=== PATIENT | male | born 1950 | race Caucasian/White ===

== ENCOUNTER 2019-02-13 10:26 | Emergency (ER) | payer OTHER, MEDICARE ==
[~2019-02-13] VITALS: Ht 170.2 cm; Wt 102.0 kg
[2019-02-13] MEDS ORDERED: ROSU40TA4 PO (10:46)
[2019-02-13] MEDS ORDERED: GLIP10TA PO (10:46)
[2019-02-13] MEDS ORDERED: LISI10TA4 PO (10:46)
[2019-02-13] MEDS ORDERED: METF10004 PO (10:46)
[2019-02-13] MEDS ORDERED: ERGO80006 PO (10:46)
[2019-02-13] MEDS ORDERED: KP K0.02 OP (10:46)
[2019-02-13] MEDS ORDERED: NS 500 ML IV ONE (13:00)
[2019-02-13 13:07] LABS: BASO # 0.1 10^3/uL (0.0-0.2); BASO % 0.9 % (0.0-1.0); EOS # 0.1 10^3/uL (0.0-0.50); EOS % 1.5 % (0.0-3.0); HEMATOCRIT 42.1 % (42.0-52.0); HEMOGLOBIN 14.6 g/dl (13.5-17.5); LYMPH % 14.2 % (24.0-44.0); MEAN CORPUSCULAR HEMOGLOBIN 31.7 pg (27.0-33.0); MEAN CORPUSCULAR HGB CONC 34.7 g/dl (32.0-36.5); MEAN CORPUSCULAR VOLUME 91.3 fl (80.0-96.0); MONO # 0.6 10^3/uL (0.0-0.8); MONO % 8.2 % (0.0-5.0); NEUTROPHILS # 5.1 10^3/uL (1.8-7.7); NEUTROPHILS % 74.9 % (36.0-66.0); PLATELET COUNT, AUTOMATED 161 10^3/uL (150-450); RED BLOOD COUNT 4.61 10^6/uL (4.30-6.10); WHITE BLOOD COUNT 6.9 10^3/uL (4.0-10.0)
[2019-02-13 13:28] LABS: BLOOD UREA NITROGEN 17 MG/DL (7-18); CALCIUM LEVEL 9.3 MG/DL (8.8-10.2); CARBON DIOXIDE LEVEL 29 MEQ/L (21-32); CHLORIDE LEVEL 99 MEQ/L (98-107); CREATININE FOR GFR 1.13 MG/DL (0.70-1.30); GLOMERULAR FILTRATION RATE > 60.0 (>42); GLUCOSE, FASTING 147 MG/DL (70-100); POTASSIUM SERUM 3.5 MEQ/L (3.5-5.1); SODIUM LEVEL 138 MEQ/L (136-145)
[2019-02-13] MEDS ORDERED: LORazepam 2 MG/ML VIAL (J2060) IV STA (16:21)
[2019-02-13] MEDS ORDERED: PROHANCE 279.3MG/ML 5ML VIAL (A9576) As Ordered ONE (17:29)
[2019-02-13] MEDS ORDERED: PROHANCE 279.3MG/ML 15ML VIAL (A9576) As Ordered ONE (17:30)
[2019-02-13] MEDS ORDERED: ACETAMINOPHEN 325 MG TAB PO ONE (20:00)
--- NOTE | 2019-02-13 20:27 | REPVR ---
EXAM: MR Lumbar Spine Without and With Contrast. EXAM DATE/TIME: 02/13/2019 5:38 PM CLINICAL HISTORY: 68 years old, male; Pain and condition or disease; Incontinence, urinary and other: Prostate cancer; Low back pain; Additional info: Back pain, lle numbness, incontinence, h/o prostate CA TECHNIQUE: Imaging protocol: Multiplanar magnetic resonance images of the lumbar spine without and with intravenous contrast. Contrast material: PROHANCE; Contrast volume: 20 ml; Contrast route: IV HAND INJECTION; COMPARISON: No relevant prior studies available. FINDINGS: Vertebrae: Unremarkable. Spinal cord: The conus medullaris terminates at the L1 level. The distal cord appears unremarkable. T12-L1: Imaged on the sagittal images only. Anterior endplate spurs. No posterior disc bulge or herniation. No central or foraminal narrowing. L1-L2: Anterior endplate spurs. No posterior disc bulge or herniation. No central or foraminal narrowing. L2-L3: Anterior endplate spurs. Minimal diffuse disc bulge. No central or foraminal narrowing. L3-L4: Anterior endplate spurs. Minimal right foraminal to lateral disc bulge. Mild to facet hypertrophy. No significant central or foraminal narrowing. L4-L5: Disc desiccation. Anterior endplate spurs. Signal changes in the superior endplate of L5 anteriorly with associated increased enhancement, likely degenerative. Small diffuse bulge of the disc. Peripheral high signal consistent with annular tear and an associated disc protrusion in the left foraminal to lateral aspect, contacting the left L4 nerve root in the neural foramen. Mild facet joint hypertrophy and ligamentum flavum hypertrophy. No significant central stenosis. Moderate left neuroforaminal narrowing and mild right neural foraminal narrowing. L5-S1: Disc desiccation. Minimal anterior endplate spurs. Diffuse bulging disc with central to left subarticular disc protrusion with peripheral high signal consistent with annular tear. The facet joints appear unremarkable. Little central canal stenosis but the disc protrusion contacts the left S1 nerve root in the lateral recess. Mild left neural foraminal narrowing. Soft tissues: The paraspinous soft tissues appear unremarkable. Other findings: The visualized aorta is normal in size. IMPRESSION: 1. L4-L5 left foraminal to lateral annular tear and disc protrusion resulting in moderate left neural foraminal narrowing, with impingement upon the exiting left L4 nerve root. 2. Central to left subarticular disc protrusion at L5-S1, contacting with the left S1 nerve root in the lateral recess. 3. No evidence of metastatic disease to the lumbar spine. Electronically signed by: Marissa Anderson On 02/13/2019 20:26:48 PM
[2019-02-13 21:51] VITALS: BP 131/83
== END 2019-02-13 21:51 | disposition home or self-care (01) ==
LOC: M ED 10:26
DX: M51.86 Other intervertebral disc disorders, lumbar region (principal); M51.26 Other intervertebral disc displacement, lumbar region; M54.16 Radiculopathy, lumbar region; E11.9 Type 2 diabetes mellitus without complications; I10 Essential (primary) hypertension; G47.30 Sleep apnea, unspecified; Z85.46 Personal history of malignant neoplasm of prostate
CPT/HCPCS: 72158; 80048; 81001; 85025; 96374; 99284; A9576; J2060

== ENCOUNTER → 2019-02-26 | Outpatient (CLI) | payer OTHER ==
[~2019-02-26] MED LIST: ERGO80006 PO; GLIP10TA PO; KP K0.02 OP; LISI10TA4 PO; METF10004 PO; ROSU40TA4 PO
--- NOTE | 2019-02-26 15:17 | REP ---
WHOLE BODY BONE SCAN: Following the intravenous administration of 22 mCi of technetium 99m MDP, the patient's whole body is imaged in the anterior and posterior projections with additional oblique and lateral views obtained. There is focal increased uptake in the posterior elements of T10 bilaterally. There is mild focal increased uptake bilaterally and symmetrically at the inferior aspect of the calcanei. There is mild arthritic uptake at both shoulders and sternoclavicular joints. There appears to be mild arthritic uptake in the anterior-inferior cervical spine. No other abnormal skeletal uptake is seen. Renal and bladder activity are seen. IMPRESSION: Focal increased uptake in the posterior elements of T10 bilaterally, nonspecific. Differential diagnosis would include arthritic change. Focal metastatic disease cannot be excluded. Further evaluation may be made with MRI of the thoracic spine with and without contrast. Electronically Signed by Cristian Nino MD 02/27/2019 12:34 P
== END ==
LOC: M RAD 10:28
PROVIDERS: ATTEND Physical Medicine & Rehabilitation
DX: R93.7 Abnormal findings on diagnostic imaging of other parts of musculoskeletal system (principal)
CPT/HCPCS: 78306; A9503

== ENCOUNTER → 2019-07-11 | Outpatient (CLI) | payer OTHER ==
[~2019-07-11] MED LIST changes: +KETO0.022 OP; -KP K0.02 OP
--- NOTE | 2019-07-11 12:33 | REP ---
Clinical: Bladder wall thickening. Technique: Real time pimentel scale and color evaluation using curved array transducer. Findings: Bladder is incompletely distended and the bladder wall measures between 6-7 mm which is nonspecific given the lack of proper distension. No bladder mass lesion is appreciated. Ureteral jets were not visualized during examination. Prevoid bladder measures 8.4 x 7.4 x 5.1 cm (207 ml). Postvoid bladder measures 3.9 x 3.1 x 2.4 cm (19 ml). Postvoid residual equals 9% Impression: Poor overall distension of the bladder should be correlated clinically. No mass lesion appreciated. Electronically Signed by Mitchell Francis MD 07/11/2019 12:25 P
== END ==
LOC: M RAD 11:05
PROVIDERS: ATTEND Physician Assistant Medical
DX: N32.9 Bladder disorder, unspecified (principal)

== ENCOUNTER → 2021-01-07 | Outpatient (CLI) | payer OTHER ==
[~2021-01-07] MED LIST changes: -KETO0.022 OP; +KETO5DRO27 OP; +LISI10TA22 PO; -LISI10TA4 PO
--- NOTE | 2021-01-09 09:20 | ECHO ---
ECHOCARDIOGRAM DATE OF PROCEDURE: 01/07/2021 Age: 70 Gender: Male Height: 67 inches Weight: 218 pounds REFERRING PHYSICIAN: DEREK Whaley INDICATION: Primary systemic hypertension. MEASUREMENTS: 2D Measurements: Left atrium 4.6 cm Intraventricular septum 1.54 cm Posterior wall 1.51 cm Left ventricle diastole 4.3 cm Aortic root 3.1 cm Aortic annulus 2.4 cm Proximal ascending aorta 3.5 cm Inferior vena cava 2.0 cm (more than 50% respiratory variation) Doppler Measurements: No aortic stenosis No aortic regurgitation Aortic valve velocity 254 cm/s Peak aortic valve gradient 26 mmHg Mean aortic valve gradient 15 mmHg Aortic valve VTI 48.3 cm LVOT velocity 143 cm/s LVOT VTI 32.5 cm Trace mitral regurgitation No mitral stenosis Mitral E velocity 96.0 cm/s Mitral A velocity 108 cm/s Trace tricuspid regurgitation Estimated right ventricle systolic pressure 27-32 mmHg Estimated right ventricular systolic pressure 5-10 mmHg Pulmonary artery acceleration time 143 msec No pulmonic regurgitation MITRAL ANNULAR TISSUE DOPPLER E prime septal 10.7 cm/s, E prime lateral 8.2 cm/s DESCRIPTION: Rhythm was sinus. Image quality was fair. No pericardial effusion. This was a 2D, M-mode, color flow Doppler, and pulsed wave Doppler examination including mitral annular tissue Doppler. CONCLUSIONS: 1. Moderate concentric left ventricular hypertrophy. No regional LV wall motion abnormalities. Hyperdynamic LV systolic function. LVEF 75-80% by visual assessment. Normal LV diastolic function for age. 2. Mild left atrial dilatation. 3. Severe focal thickening and focal calcific deposits of a 3-cuspid aortic valve. No aortic stenosis. No aortic regurgitation. 4. Moderate mitral annular calcification. Trace mitral regurgitation. No mitral stenosis. 5. Otherwise normal appearing echocardiogram Doppler findings.
== END ==
LOC: M CARPUL 13:28
PROVIDERS: ATTEND Physician Assistant Medical
DX: I10 Essential (primary) hypertension (principal)

== ENCOUNTER → 2021-01-10 | Outpatient (CLI) | payer OTHER ==
--- NOTE | 2021-01-10 22:11 | REP ---
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 TECHNIQUE: Nino scale and color Doppler evaluation using linear high frequency transducer Findings: FINDINGS: Two-dimensional nino scale and color images demonstrate moderate amounts of mixed atheromatous plaquing. Doppler interrogation demonstrates normal arterial wave patterns and velocities with no significant spectral broadening. Normal flow direction is appreciated in the bilateral vertebral arteries. ICA peak systolic velocity: Right 106 cm/s; Left 71.8 cm/s ICA diastolic velocity: Right 24.3 cm/s; Left 21.1 cm/s ECA peak systolic velocity: Right 195 cm/s; Left 113 cm/s CCA peak systolic velocity: Right 96.3 cm/s; Left 106 cm/s ICA/CCA ratio: Right 1.1 cm/s; Left 0.67 cm/s IMPRESSION: No hemodynamically significant areas of narrowing or stenosis appreciated. Based on set standards narrowing falls within the less than 50% range range. <Electronically signed by Mitchell Francis > 01/10/21 [id number]
== END ==
LOC: M RAD 16:09
PROVIDERS: ATTEND Physician Assistant Medical
DX: I65.21 Occlusion and stenosis of right carotid artery (principal)

== ENCOUNTER 2024-02-26 15:08 | Emergency (ER) | payer MEDICARE, OTHER ==
[~2024-02-26] VITALS: Ht 170.2 cm; Wt 93.7 kg
[~2024-02-26 15:08] MED LIST changes: -ROSU40TA4 PO; +ROSU40TA63 PO
[2024-02-26 15:09] VITALS: TEMP 96.8
[2024-02-26] MEDS: diphenhydrAMINE 50MG/ML VIAL IV STA (16:42)
[2024-02-26] MEDS: methylPREDNISolone 125MG 2ML VIAL IV ONE (16:42)
[2024-02-26] MEDS: FAMOTIDINE 20MG/2ML VIAL IVP ONE (16:42)
[2024-02-26] MEDS ORDERED: PRED20TA PO (17:42)
[2024-02-26] MEDS ORDERED: CETI-24 PO (17:42)
[2024-02-26 17:47] VITALS: BP 102/56
[2024-02-26 18:00] VITALS: O2SAT 95
== END 2024-02-26 18:21 | disposition home or self-care (01) ==
LOC: M ED 15:08
DX: L50.9 Urticaria, unspecified (principal); I44.0 Atrioventricular block, first degree; I45.10 Unspecified right bundle-branch block; E11.9 Type 2 diabetes mellitus without complications; I10 Essential (primary) hypertension; G47.33 Obstructive sleep apnea (adult) (pediatric); E78.5 Hyperlipidemia, unspecified; F10.10 Alcohol abuse, uncomplicated; Z79.52 Long term (current) use of systemic steroids; Z79.899 Other long term (current) drug therapy
CPT/HCPCS: 93005; 96374; 99284; J1200; J2919

== ENCOUNTER 2024-08-13 14:20 | Observation (INO) | payer MEDICARE, OTHER ==
[~2024-08-13] VITALS: Ht 170.2 cm; Wt 90.0 kg
[~2024-08-13 14:20] MED LIST changes: +CETI-24 PO; +PRED20TA PO; -ROSU40TA63 PO; +ROSU40TA81 PO
[2024-08-13] MEDS: NS (Normal Saline) 0.9% 1,000 ML IV ONE (17:25)
[2024-08-13 18:18] LABS: BASO % 0.2 % (0.0-1.0); EOS # 0.3 10^3/uL (0.0-0.5); HEMATOCRIT 29.1 % (42.0-52.0); HEMOGLOBIN 9.7 g/dl (13.5-17.5); LYMPH # 0.6 10^3/uL (1.5-5.0); MEAN CORPUSCULAR HEMOGLOBIN 31.8 pg (27.0-33.0); MEAN CORPUSCULAR HGB CONC 33.3 g/dl (32.0-36.5); MEAN CORPUSCULAR VOLUME 95.4 fl (80.0-96.0); MONO # 0.8 10^3/uL (0.0-0.8); MONO % 8.8 % (2.0-8.0); NEUTROPHILS # 7.4 10^3/uL (1.5-8.5); NEUTROPHILS % 80.7 % (36.0-66.0); PLATELET COUNT, AUTOMATED 178 10^3/uL (150-450); RED BLOOD COUNT 3.05 10^6/uL (4.30-6.10); WHITE BLOOD COUNT 9.1 10^3/uL (4.0-10.0)
[2024-08-13 18:31] LABS: ALBUMIN 3.8 G/DL (3.2-5.2); ALKALINE PHOSPHATASE 50 U/L (40-129); ALT/SGPT 22 U/L (7.0-40); AST/SGOT < 8 U/L (<34); BILIRUBIN,DIRECT 0.2 MG/DL (<0.4); BILIRUBIN,TOTAL 0.6 MG/DL (0.3-1.2); BLOOD UREA NITROGEN 81 MG/DL (9-23); CALCIUM LEVEL 9.6 MG/DL (8.3-10.6); CARBON DIOXIDE LEVEL 22 MMOL/L (20-31); CHLORIDE LEVEL 105 MMOL/L (98-107); GLOMERULAR FILTRATION RATE 25.7 (>42); GLUCOSE, FASTING 196 MG/DL (74-106); POTASSIUM SERUM 5.5 MMOL/L (3.5-5.1); SODIUM LEVEL 137 MMOL/L (136-145); TOTAL PROTEIN 7.5 G/DL (5.7-8.2)
[2024-08-13] MEDS ORDERED: LISI40TA4 PO (18:53)
[2024-08-13] MEDS ORDERED: SITA50TAB PO (18:53)
[2024-08-13] MEDS ORDERED: VITA500045 PO (18:53)
[2024-08-13] MEDS ORDERED: HOME MED LIST COMPLETE! XX SCH (18:55)
[2024-08-13] MEDS: NS (Normal Saline) 0.9% 1,000 ML IV SCH (19:28)
[2024-08-13] MEDS ORDERED: GLUCOSE 4 GM CHEW PO PRN (20:00)
[2024-08-13] MEDS ORDERED: DEXTROSE 50% 50ML SYRINGE IV PRN (20:00)
[2024-08-13] MEDS ORDERED: GLUCAGON INJ 1MG VIAL SC PRN (20:00)
[2024-08-13] MEDS: NS (Normal Saline) 0.9% 1,000 ML IV STA (20:28)
[2024-08-13 21:11] LABS: OSMOLALITY SERUM 315 MOSM/KG (280-301)
[2024-08-13 22:17] LABS: KETONE, URINE AUTO RFX TRACE mg/dL (NEGATIVE); MUCUS, URINE RFX SMALL (NEGATIVE); NITRITE, URINE AUTO RFX NEGATIVE (NEGATIVE); RBC, URINE AUTO RFX 1 /HPF (0-3); SQUAM EPITHELIAL CELL UR AURFX 3 /HPF (0-6)
[2024-08-13 22:20] VITALS: BP 97/61; TEMP 98.7; O2SAT 97
[2024-08-13 22:22] LABS: LEUKOCYTE ESTERASE UR AUTO RFX TRACE (NEGATIVE); WBC, URINE AUTO RFX 25 /HPF (0-3)
[2024-08-13 22:26] LABS: CREATININE,RANDOM URINE 154.5 MG/DL
[2024-08-13] MEDS: INSULIN LISPRO (NovoLOG) PER UNIT SC SCH ×2 (23:09→23:25)
[2024-08-13] MEDS: PATIROMER SORBITEX CALCIUM 8.4 GM POWDER PACKET (VELTASSA) PO ONE (23:39)
[2024-08-14] VITALS: BP 96/62
[2024-08-14 01:08] VITALS: BP 99/60
[2024-08-14 01:31] LABS: CALCIUM LEVEL 8.2 MG/DL (8.3-10.6); CREATININE FOR GFR 2.37 MG/DL (0.70-1.30); GLOMERULAR FILTRATION RATE 28.6 (>42); POTASSIUM SERUM 5.1 MMOL/L (3.5-5.1)
[2024-08-14 04:03] VITALS: BP 108/71; TEMP 97.9; O2SAT 95
[2024-08-14] MEDS: HEPARIN SOD (PORCINE) 5000UNITS/ML 1ML VIAL/SYRINGE SC SCH (06:13)
[2024-08-14 06:19] LABS: HEMOGLOBIN 8.8 g/dl (13.5-17.5); MEAN CORPUSCULAR HEMOGLOBIN 31.9 pg (27.0-33.0); MEAN CORPUSCULAR HGB CONC 32.6 g/dl (32.0-36.5); MEAN CORPUSCULAR VOLUME 97.8 fl (80.0-96.0); PLATELET COUNT, AUTOMATED 152 10^3/uL (150-450); RED BLOOD COUNT 2.76 10^6/uL (4.30-6.10); WHITE BLOOD COUNT 5.3 10^3/uL (4.0-10.0)
[2024-08-14 06:40] LABS: ALBUMIN 3.2 G/DL (3.2-5.2); ALKALINE PHOSPHATASE 42 U/L (40-129); ALT/SGPT 18 U/L (7.0-40); AST/SGOT < 8 U/L (<34); BILIRUBIN,TOTAL 0.6 MG/DL (0.3-1.2); BLOOD UREA NITROGEN 71 MG/DL (9-23); CALCIUM LEVEL 8.6 MG/DL (8.3-10.6); CARBON DIOXIDE LEVEL 19 MMOL/L (20-31); CHLORIDE LEVEL 114 MMOL/L (98-107); CREATININE FOR GFR 2.19 MG/DL (0.70-1.30); GLOMERULAR FILTRATION RATE 31.3 (>42); GLUCOSE, FASTING 166 MG/DL (74-106); MAGNESIUM LEVEL 1.7 MG/DL (1.8-2.4); POTASSIUM SERUM 5.1 MMOL/L (3.5-5.1); SODIUM LEVEL 141 MMOL/L (136-145); TOTAL PROTEIN 5.8 G/DL (5.7-8.2)
[2024-08-14] MEDS: ROSUVASTATIN 10 MG TAB (CRESTOR) PO SCH (08:34)
[2024-08-14] MEDS: NS (Normal Saline) 0.9% 1,000 ML IV SCH (08:35)
[2024-08-14] MEDS ORDERED: lisinopriL 40MG TAB PO SCH (09:00)
[2024-08-14] MEDS: MAG SULF 1GM/100ML (MAG RUN) 1 GM in IV 1 EA IV ONE (09:13)
[2024-08-14] MEDS: MAGNESIUM OXIDE 400MG TAB (MAG-OX) PO SCH (09:14)
[2024-08-14 09:23] LABS: IRON (FE) 84 UG/DL (65-175); PERCENT SATURATION 36.4 % (19.7-50.0); TOTAL IRON BINDING CAPACITY 231 UG/DL (250-425)
[2024-08-14 09:25] LABS: FERRITIN 579.2 NG/ML (10.5-307.3); FOLATE 10.23 NG/ML (>5.4)
[2024-08-14 09:26] LABS: VITAMIN B12 LEVEL 739 PG/ML (211-911)
[2024-08-14] MEDS ORDERED: LOPERAMIDE 2 MG CAPLET PO PRN (09:55)
[2024-08-14] MEDS: LOPERAMIDE 2 MG CAPLET PO ONE (10:00)
[2024-08-14 12:00] VITALS: BP 116/57; TEMP 97.8; O2SAT 98
[2024-08-14 20:37] VITALS: BP 82/49; TEMP 98.8; O2SAT 93
[2024-08-14 21:06] VITALS: BP 95/67
[2024-08-15 02:51] VITALS: BP 126/79; TEMP 98.2; O2SAT 98
[2024-08-15 07:11] VITALS: BP 138/91
[2024-08-15 08:44] LABS: CALCIUM LEVEL 8.6 MG/DL (8.3-10.6); CREATININE FOR GFR 1.76 MG/DL (0.70-1.30); GLOMERULAR FILTRATION RATE 40.3 (>42); POTASSIUM SERUM 4.7 MMOL/L (3.5-5.1)
[2024-08-15] MEDS ORDERED: SITA50TAB PO (11:12)
[2024-08-15] MEDS ORDERED: AMLO25TA PO (11:12)
== END 2024-08-15 13:03 | disposition home or self-care (01) ==
LOC: M ED 14:20 → M ED INP 19:47 → INTOOBSV 19:47 → M MSPAV 22:11
PROVIDERS: ADMIT Student in an Organized Health Care Education/Training Program; ATTEND Internal Medicine
DX: N17.9 Acute kidney failure, unspecified (principal); I10 Essential (primary) hypertension; G47.33 Obstructive sleep apnea (adult) (pediatric); E78.5 Hyperlipidemia, unspecified; I95.9 Hypotension, unspecified; A08.11 Acute gastroenteropathy due to Norwalk agent; E83.42 Hypomagnesemia; D64.9 Anemia, unspecified; E87.6 Hypokalemia; Z79.899 Other long term (current) drug therapy
CPT/HCPCS: 36415; 71045; 74176; 80047; 80048; 80053; 80076; 81001; 82570; 82607; 82728; 82746; 83550; 83735; 83930; 83935; 84300; 84484; 85025; 85027; 87088; 87186; 87507; 93005; 96361; 96366; 96372; 99285; G0378; J1815; J3475

== ENCOUNTER → 2025-01-20 | Outpatient (CLI) | payer OTHER ==
[~2025-01-20] MED LIST changes: +AMLO25TA PO; +LISI40TA10 PO; +SITA50TAB PO; +VITA500045 PO
== END ==
LOC: M EKG 10:43
PROVIDERS: ATTEND Physician Assistant
DX: I45.89 Other specified conduction disorders (principal)

== ENCOUNTER → 2025-03-04 | Outpatient (CLI) | payer OTHER | LOC: M CARPUL 15:32 | PROVIDERS: ATTEND Physician Assistant | DX: I35.0 Nonrheumatic aortic (valve) stenosis (principal) ==

== ENCOUNTER 2025-07-11 12:19 | Emergency (ER) | payer OTHER ==
[~2025-07-11] VITALS: Ht 170.2 cm; Wt 95.8 kg
[~2025-07-11 12:19] MED LIST changes: +ERGO125013 PO; -VITA500045 PO
[2025-07-11 13:49] LABS: KETONE, URINE AUTO RFX TRACE mg/dL (NEGATIVE); LEUKOCYTE ESTERASE UR AUTO RFX NEGATIVE (NEGATIVE); MUCUS, URINE RFX SMALL (NEGATIVE); NITRITE, URINE AUTO RFX NEGATIVE (NEGATIVE); RBC, URINE AUTO RFX TNTC /HPF (0-3); SQUAM EPITHELIAL CELL UR AURFX 0 /HPF (0-6); WBC, URINE AUTO RFX 3 /HPF (0-3)
[2025-07-11 16:38] LABS: BASO # 0.1 10^3/uL (0.0-0.2); BASO % 0.4 % (0.0-1.0); EOS # 0.0 10^3/uL (0.0-0.5); EOS % 0.2 % (0.0-3.0); LYMPH # 0.4 10^3/uL (1.5-5.0); LYMPH % 3.3 % (24.0-44.0); MONO # 0.5 10^3/uL (0.0-0.8); MONO % 3.7 % (2.0-8.0); NEUTROPHILS # 11.4 10^3/uL (1.5-8.5); NEUTROPHILS % 91.8 % (36.0-66.0); PLATELET COUNT, AUTOMATED 175 10^3/uL (150-450)
[2025-07-11 17:06] LABS: ALT/SGPT 20.0 U/L (7.0-40); AST/SGOT 13.0 U/L (<34); CALCIUM LEVEL 9.4 MG/DL (8.3-10.6); CARBON DIOXIDE LEVEL 20.0 MMOL/L (20-31); CHLORIDE LEVEL 101.0 MMOL/L (98-107); CREATININE FOR GFR 1.68 MG/DL (0.70-1.30); GLOMERULAR FILTRATION RATE 41.6 (>42); POTASSIUM SERUM 5.6 MMOL/L (3.5-5.1); SODIUM LEVEL 135.0 MMOL/L (136-145)
[2025-07-11] MEDS ORDERED: TAMS1CAP17 PO (17:43)
[2025-07-11] MEDS: LIDOCAINE 2% 5 ML JELLY UROJET TOP ONE (18:08)
[2025-07-11] MEDS: PATIROMER SORBITEX CALCIUM 8.4GM POWDER PACKET PO ONE (18:08)
[2025-07-11] MEDS: TAMSULOSIN 0.4 MG CAP PO ONE (19:28)
[2025-07-11 20:18] VITALS: BP 147/67; TEMP 99; O2SAT 96
== END 2025-07-11 20:28 | disposition home or self-care (01) ==
LOC: M ED 12:19
DX: R33.9 Retention of urine, unspecified (principal); E11.9 Type 2 diabetes mellitus without complications; C61 Malignant neoplasm of prostate; I10 Essential (primary) hypertension; Z79.899 Other long term (current) drug therapy